=== PATIENT | female | born 1990 | race Asian ===

== ENCOUNTER 2024-03-15 11:14 | Emergency (ER) | payer MEDICARE, OTHER ==
[~2024-03-15] VITALS: Ht 154.9 cm; Wt 39.0 kg
[2024-03-15 11:34] VITALS: BP 117/71; PULSE 93; RESP 21; TEMP 99
== END 2024-03-15 11:54 | disposition home or self-care (01) ==
LOC: EMS 11:16 → EDBD 11:16 → EMS 11:54
DX: R45.1 Restlessness and agitation (principal)
CPT/HCPCS: 99285; Z7502